=== PATIENT | female | born 1975 | race American Indian/Alaskan Native ===

== ENCOUNTER 2018-11-03 17:50 | Emergency (ER) | payer MEDICAID ==
--- NOTE | 2018-11-03 18:49 | Emergency Department Report ---
Blank Doc - Documentation Documentation: pt with a pmh of herniated disc presents with back pain x last night denies injury, dysuria, trauma, states PCP appt on tuesday This initial assessment diagnostic orders/clinical plan/treatment (s) is/Are subject change based on patient's health status, clinical progression and re- assessment by fellow clinical providers in the ED. Further treatment and work-up at subsequent clinical providers discretion. Patient/guardians urged not to elope from their condition may be serious if not clinically assessed and managed. Initial order include: [facility] evaluate
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
== END 2018-11-03 21:57 | disposition home or self-care (01) ==
LOC: ED 17:50
CPT/HCPCS: 99282